=== PATIENT | female | born 1985 | race Hispanic/Latino ===

== ENCOUNTER 2023-02-27 07:56 | Outpatient (RCR) | payer BC ==
[~2023-02-27 07:56] MED LIST: DICYCLOMINE HCL10 MG PO; METRONIDAZOLE500 MG PO; MULTI-VITAMIN1 EACH PO; PROTONIX20 MG PO
== END 2023-03-22 ==
LOC: PT 07:56
PROVIDERS: ATTEND Podiatrist Foot & Ankle Surgery
DX: Z47.89 Encounter for other orthopedic aftercare (principal); M72.2 Plantar fascial fibromatosis; M62.81 Muscle weakness (generalized); R26.89 Other abnormalities of gait and mobility